=== PATIENT | female | born 1975 | race Caucasian/White ===

== ENCOUNTER 2018-08-07 10:58 | Day surgery (SDC) | payer OTHER ==
[~2018-08-07 10:58] MED LIST: CEFAZOLIN 2 GM/50 ML (PMX) 50 ML IVPB
[2018-08-07] MEDS: SOD CHLORIDE 0.9% 1,000 ML IV (12:15)
[2018-08-07] MEDS: INSULIN REGULAR, HUMAN 100 UNIT/1 ML 3ML VIAL SC (12:17)
[2018-08-07] MEDS: BUPIVACAINE 0.25%/EPI (SDV) 30 ML INJ (12:35)
[2018-08-07] MEDS ORDERED: TRIMETHOBENZAMIDE 100 MG/ML VIAL IM (13:00)
[2018-08-07] MEDS ORDERED: LABETALOL HCL 20MG INJ IV (13:00)
[2018-08-07] MEDS ORDERED: DIPHENHYDRAMINE 50 MG INJ IV (13:00)
[2018-08-07] MEDS ORDERED: hydrALAzine 20 MG INJ IV (13:00)
[2018-08-07] MEDS ORDERED: EPHEDrine 25 MG/5 ML SYG IV (13:00)
[2018-08-07] MEDS ORDERED: MEPERIDINE 25 MG INJ IV (13:00)
[2018-08-07] MEDS ORDERED: ONDANSETRON 4 MG INJ IV ×2 (13:00→13:30)
[2018-08-07] MEDS ORDERED: MIDAZOLAM 1 MG/ML 2 ML INJ IV (13:00)
[2018-08-07] MEDS ORDERED: HYDROmorphONE 1 MG/5 ML IV SYRINGE IV ×3 (13:00)
[2018-08-07] MEDS ORDERED: FENTAnyl 50 MCG/ML VIAL IV ×3 (13:00)
[2018-08-07] MEDS ORDERED: ALBUTEROL 0.083% (NEB) 2.5 MG/3 ML AMP HHN (13:00)
[2018-08-07] MEDS ORDERED: OXYCODONE/ACETAMINOPHEN (5/325) TAB PO ×2 (13:00)
[2018-08-07] MEDS ORDERED: IPRATROPIUM (NEB) 0.5 MG/2.5 ML AMP HHN (13:00)
[2018-08-07] MEDS ORDERED: FENTAnyl 50 MCG/ML VIAL (13:03)
[2018-08-07] MEDS ORDERED: MIDAZOLAM 1 MG/ML 2 ML INJ (13:04)
[2018-08-07] MEDS ORDERED: LABETALOL HCL 20MG INJ (13:05)
[2018-08-07] MEDS: LIDOCAINE 2% (SDV) 5 ML INJ INJ ×2 (13:17)
[2018-08-07] MEDS ORDERED: IBUPROFEN 600 MG TAB PO (13:30)
== END 2018-08-07 15:20 | disposition home or self-care (01) ==
LOC: SDS 10:58
DX: D24.2 Benign neoplasm of left breast (principal); I10 Essential (primary) hypertension; E11.9 Type 2 diabetes mellitus without complications; E66.9 Obesity, unspecified; Z79.4 Long term (current) use of insulin
CPT/HCPCS: 19120; 82962; 88307